=== PATIENT | male | born 1945 | race Caucasian/White ===

== ENCOUNTER 2016-07-01 07:23 | Emergency (ER) | payer OTHER ==
[~2016-07-01] VITALS: Ht 167.6 cm; Wt 65.8 kg
--- NOTE | 2016-07-01 07:25 | NUR ---
Patient to ER bed 7 to gown for evaluation. Side rails up. Report given to Malou MYERS.
[2016-07-01 07:31] VITALS: BP_SYST 131
--- NOTE | 2016-07-01 07:34 | NUR ---
Patient to ER C/O blood in urine. Patient states that recently he had a colonoscopy and since then he has been unable to urinate. Yesterday patient had urinary catheter with leg bag placed and today patient states that he has severe lower abdominal pain and pressure, feels the need to urinate but only blood trickles down in the urinary bag. AAOx4, unlabored breathing, no signs of acute distress.
--- NOTE | 2016-07-01 07:46 | NUR ---
ER MD Lai at bedside for evaluation
--- NOTE | 2016-07-01 07:58 | NUR ---
# 16 FR Marroquin catheter with use of sterile technique. Immediate return of 600 cc dark bloody urine noted. Bedside drainage bag placed below level of bladder. Urine sample collected and sent to lab. Pt tolerated procedure well.
[2016-07-01 08:14] LABS: BILIRUBIN,URINE 1+ (NEGATIVE); BLOOD, URINE 3+ (NEGATIVE); CLARITY/URINE HAZY (CLEAR); COLOR,URINE RED (YELLOW); GLUCOSE,URINE NEGATIVE (NEGATIVE); KETONES,URINE NEGATIVE (NEGATIVE); LEUKOCYTE ESTERASE ,URINE TRACE (NEGATIVE); NITRITE, URINE POSITIVE (NEGATIVE); PROTEIN URINE 2+ (NEGATIVE)
[2016-07-01 08:17] LABS: CALCIUM 8.8 mg/dL (8.4-11.0); CREATININE 0.98 mg/dL (0.55-1.30)
[2016-07-01 08:20] LABS: BACTERIA,URINE RARE /HPF (None Seen); MUCUS,URINE None Seen /LPF (None Seen); RBC,URINE >100 /HPF (0-3); WBC,URINE 0-3 /HPF (0-3)
[2016-07-01 08:21] LABS: BASOPHILS % (AUTO) 0.5 % (0.0-2.0); EOSINOPHILS % (AUTO) 0.3 % (0.0-4.0); HEMATOCRIT 42.8 % (36-54); HEMOGLOBIN 14.3 g/dL (14.0-18.0); LYMPHOCYTES # (AUTO) 0.7 K/uL (1.0-5.5); LYMPHOCYTES % (AUTO) 8.6 % (20.5-51.5); MEAN CORPUSCULAR HEMOGLOBIN 30 pg (27-31); MEAN CORPUSCULAR HGB CONC 33 % (32-36); MEAN CORPUSCULAR VOLUME 91 fL (79.0-98.0); MONOCYTES # (AUTO) 0.8 K/uL (0.0-1.0); MONOCYTES % (AUTO) 9.8 % (1.7-9.3); NEUTROPHILS # (AUTO) 6.9 K/uL (1.8-7.7); NEUTROPHILS % (AUTO) 80.8 % (40.0-70.0); PLATELET COUNT (AUTO) 134 K/uL (130-430); RED BLOOD CELL COUNT(AUTO) 4.69 MIL/uL (4.2-6.2); RED CELL DISTRIBUTION WIDTH 13.1 % (9.0-15.0); WHITE BLOOD COUNT (AUTO) 8.4 K/uL (4.8-10.8)
[2016-07-01] MEDS ORDERED: ALEN10TA6 PO (08:50)
[2016-07-01] MEDS ORDERED: TAMS-11 PO (08:50)
[2016-07-01] MEDS ORDERED: GABA-531 PO (08:50)
[2016-07-01] MEDS ORDERED: LORA10TA7 PO (08:50)
[2016-07-01] MEDS ORDERED: LEVE750T4 PO (08:50)
[2016-07-01] MEDS ORDERED: MORPHINE 4 MG/ML INJ. SYRINGE IM ONE (09:45)
[2016-07-01] MEDS ORDERED: MORPHINE 4 MG/ML INJ. SYRINGE IVP ONE (09:45)
--- NOTE | 2016-07-01 09:57 | NUR ---
Marroquin changed to leg bag
[2016-07-01 10:04] VITALS: BP_SYST 123
--- NOTE | 2016-07-01 10:04 | NUR ---
Patient given written and verbal discharge instructions and verbalizes understanding. ER MD Lai discussed with patient the results and treatment provided. Patient in stable condition. ID arm band removed. Rx of pyridium, tylenol/codeine, doxycycline given. Patient educated on pain management and to follow up with PMD. Pain Scale 0/10. Opportunity for questions provided and answered.
== END 2016-07-01 10:04 | disposition home or self-care (01) ==
LOC: SED 07:23
DX: T83.83XA Hemorrhage due to genitourinary prosthetic devices, implants and grafts, initial encounter (principal); N30.01 Acute cystitis with hematuria; Z86.79 Personal history of other diseases of the circulatory system
CPT/HCPCS: 36415; 51702; 80048; 81000; 85025; 96372; 99284; J2270